=== PATIENT | male | born 1960 | race Two or more races ===

== ENCOUNTER 2017-06-13 23:19 | Inpatient (IN) | payer MEDICAID ==
[~2017-06-13] VITALS: Ht 185.4 cm; Wt 68.2 kg
[~2017-06-13 23:19] MED LIST: ALBU18HF2 INH; AMLO10TA4 PO; ASPI-1265 PO; HYDR-565 PO; LORA-269 PO; LOSA50TA37 PO; OMEP20CA10 PO
[2017-06-14] MEDS ORDERED: piperacillin/tazo 3.375gm/50ml 50 ML IV ONE (01:40)
[2017-06-14] MEDS ORDERED: vancomycin/NS 1 GM ADD-VANTAGE 250 ML IV ONE (01:40)
[2017-06-14] MEDS ORDERED: morphine 4 MG/ML inj SYRINge IV ONE (01:50)
[2017-06-14] MEDS ORDERED: ondansetron/PF 4mg/2ml inj IV ONE (01:50)
[2017-06-14 02:19] LABS: BASOPHILS # (AUTO) 0.1 X10'3 (0-0.2); BASOPHILS % (AUTO) 0.3 % (0-1); EOSINOPHILS # (AUTO) 0.1 X10'3 (0-0.9); EOSINOPHILS % (AUTO) 0.3 % (0-6); HEMATOCRIT 29.6 % (42.0-52.0); HEMOGLOBIN 10.1 g/dl (14.0-17.9); LYMPHOCYTES # (AUTO) 0.9 X10'3 (1.1-4.8); LYMPHOCYTES % (AUTO) 4.6 % (21-51); MEAN CORPUSCULAR HEMOGLOBIN 31.4 PG (27.0-31.0); MEAN CORPUSCULAR HGB CONC 33.9 % (33.0-36.5); MEAN CORPUSCULAR VOLUME 92.5 FL (78-98); MEAN PLATELET VOLUME 7.6 FL (7.4-10.4); MONOCYTES # (AUTO) 0.5 X10'3 (0-0.9); MONOCYTES % (AUTO) 2.6 % (2-12); NEUTROPHILS # (AUTO) 18.8 X10'3 (1.8-7.7); NEUTROPHILS % (AUTO) 92.2 % (42-75); PLATELET COUNT 194 X10'3 (140-440); RED CELL DISTRIBUTION WIDTH 14.7 % (11.5-14.5); WHITE BLOOD COUNT 20.4 X10'3 (4.5-11.0)
[2017-06-14 02:32] LABS: ALANINE AMINOTRANSFERASE 19 U/L (12-78); ALBUMIN 2.9 G/DL (3.4-5.0); ALBUMIN/GLOBULIN RATIO 0.6 (1.1-1.5); ALKALINE PHOSPHATASE 103 IU/L (46-116); ANION GAP 14 (8-16); ASPARTATE AMINO TRANSFERASE 36 U/L (10-37); BILIRUBIN,TOTAL 0.6 MG/DL (0.1-1.0); BLOOD UREA NITROGEN 22 MG/DL (7-18); BUN/CREATININE RATIO 17.3 (5.4-32.0); CALCIUM 8.4 MG/DL (8.5-10.1); CHLORIDE 89 MMOL/L (99-107); CREATININE 1.27 MG/DL (0.60-1.10); GLUCOSE 106 MG/DL (70-104); SODIUM 123 MMOL/L (135-145); TOTAL PROTEIN 7.5 G/DL (6.4-8.2); eGFR 58 ML/MIN
[2017-06-14] MEDS ORDERED: potassium Cl 20 mEq/100mL bag IV ONE (02:50)
[2017-06-14] MEDS ORDERED: normal saline 1000ML IV soln IV ONE (02:50)
[2017-06-14 03:02] LABS: CLARITY,URINE Clear (Clear); COLOR,URINE Yellow (Yellow); GLUCOSE, URINE Negative (Neg); KETONES,URINE Trace mg/dl (Neg); LEUKOCYTE ESTERASE ,URINE Trace (Neg); NITRITES, URINE Negative (Neg); OCCULT BLOOD,URINE Negative (Neg); PROTEIN,URINE Trace mg/dl (Neg)
[2017-06-14 03:15] LABS: UA COLLECTION TYPE CLN CATCH MIDSTREAM
[2017-06-14 03:23] LABS: TOTAL CELLS COUNTED 100
[2017-06-14 03:24] LABS: PLATELET ESTIMATE NORMAL; TOXIC GRANULATION 2+
[2017-06-14 03:25] LABS: TOXIC VACUOLATION FEW
[2017-06-14] MEDS ORDERED: potassium Cl 20mEq/100mL bag 100 ML IV ONE (03:30)
[2017-06-14 03:31] LABS: BACTERIA,URINE FEW /HPF (Neg); HYALINE CASTS 0-3 /LPF (NEGATIVE); RBC,URINE NONE SEEN /HPF (0-2); RENAL CELLS, URINE FEW /HPF; SQUAMOUS EPITHELIAL CELL,UR FEW /LPF (FEW); TRANSITIONAL EPI CELLS,URINE FEW /HPF; WBC,URINE 0-4 /HPF (0-4)
[2017-06-14 03:32] LABS: MUCUS STRANDS FEW /LPF (Neg)
[2017-06-14] MEDS ORDERED: dextrose 50%-water 50ml dispensing syringe IV PRN (03:55)
[2017-06-14] MEDS ORDERED: potassium Cl 40MEQ/NS 500ml 500 ML IV PRN ×2 (03:55)
[2017-06-14] MEDS ORDERED: potassium Cl 20 mEq SR tablet PO PRN ×2 (03:55)
[2017-06-14] MEDS ORDERED: LORazepam 2 mg/ml vial IV PRN ×2 (03:55)
[2017-06-14] MEDS: normal saline 1000ml 1,000 ML IV SCH ×2 (03:55→13:55)
[2017-06-14] MEDS ORDERED: ondansetron/PF 4mg/2ml inj IV PRN (03:55)
[2017-06-14] MEDS ORDERED: acetaminophen 325mg tablet PO PRN (03:55)
[2017-06-14] MEDS: LORazepam 1 MG tablet PO PRN ×2 (05:20→20:34)
[2017-06-14] MEDS: HYDROcodone/acetaminophen 5mg/325mg tablet PO PRN (05:33)
[2017-06-14] MEDS: K and/or MAG REPLACEMENT MC SCH (08:00)
[2017-06-14] MEDS ORDERED: potassium chloride 10mEq CAPSULE.SA PO SCH (08:00)
[2017-06-14] MEDS: potassium Cl 20 mEq SR tablet PO SCH (09:23)
[2017-06-14] MEDS: pantoprazole 40mg Tablet.DR PO SCH (09:23)
[2017-06-14] MEDS: thiamine 100mg tablet PO SCH (09:23)
[2017-06-14] MEDS: folic acid 1mg tablet PO SCH (09:23)
[2017-06-14] MEDS: lactobacillus rhamnosus 10,000 MMU CELLS/CAPSULE PO SCH ×2 (09:24→19:35)
[2017-06-14] MEDS: piperacillin/tazo 3.375gm/50ml 50 ML IV SCH ×2 (09:24→14:00)
[2017-06-14] MEDS ORDERED: LISI2.5T2 PO (11:43)
[2017-06-14] MEDS ORDERED: cefepime 2g/NS 100ml ADVANTAGE 100 ML IV SCH (16:00)
[2017-06-14 16:11] LABS: ALBUMIN 2.6 G/DL (3.4-5.0); ANION GAP 13 (8-16); BLOOD UREA NITROGEN 19 MG/DL (7-18); BUN/CREATININE RATIO 15.2 (5.4-32.0); CALCIUM 8.4 MG/DL (8.5-10.1); CHLORIDE 97 MMOL/L (99-107); CREATININE 1.25 MG/DL (0.60-1.10); GLUCOSE 108 MG/DL (70-104); POTASSIUM 4.1 MMOL/L (3.5-5.1); SODIUM 130 MMOL/L (135-145); eGFR 59 ML/MIN
[2017-06-14 16:13] LABS: ALBUMIN 2.6 G/DL (3.4-5.0); ANION GAP 13 (8-16); BLOOD UREA NITROGEN 19 MG/DL (7-18); BUN/CREATININE RATIO 15.4 (5.4-32.0); CALCIUM 8.4 MG/DL (8.5-10.1); CHLORIDE 97 MMOL/L (99-107); CREATININE 1.23 MG/DL (0.60-1.10); GLUCOSE 108 MG/DL (70-104); POTASSIUM 4.1 MMOL/L (3.5-5.1); SODIUM 129 MMOL/L (135-145); TOTAL CARBON DIOXIDE 19.1 MMOL/L (24-32); eGFR 60 ML/MIN
[2017-06-14] MEDS ORDERED: iohexol 300mg/ml 100ml inj. ONE (16:24)
[2017-06-14 16:38] LABS: HIV ANTIBODY 1&2 RAPID NON-REACTIVE (Neg)
[2017-06-14] MEDS: clindamycin-Cleocin 900mg/D5W 50 ML IV SCH ×2 (17:42→23:30)
[2017-06-14] MEDS: cefepime inj 2 GM in dextrose 5%-water 100 ML IV SCH (17:58)
[2017-06-14] MEDS: vancomycin/NS 1 GM ADD-VANTAGE 250 ML IV SCH (19:38)
[2017-06-14 20:00] VITALS: BP 125/83
[2017-06-15] VITALS: BP 107/58
[2017-06-15] MEDS: cefepime inj 2 GM in dextrose 5%-water 100 ML IV SCH ×2 (00:01→09:45)
[2017-06-15] MEDS ORDERED: Potassium Cl inj 20 MEQ in normal saline 1000ml 1,000 ML IV SCH (03:55)
[2017-06-15] MEDS: vancomycin/NS 1 GM ADD-VANTAGE 250 ML IV SCH ×2 (04:55→17:52)
[2017-06-15] MEDS: potassium Cl 20mEq in NS 1,000 ML IV SCH ×2 (04:55→14:05)
[2017-06-15 06:13] LABS: BASOPHILS # (AUTO) 0.1 X10'3 (0-0.2); BASOPHILS % (AUTO) 0.8 % (0-1); EOSINOPHILS % (AUTO) 0 % (0-6); HEMATOCRIT 26.2 % (42.0-52.0); HEMOGLOBIN 8.8 g/dl (14.0-17.9); LYMPHOCYTES # (AUTO) 0.4 X10'3 (1.1-4.8); LYMPHOCYTES % (AUTO) 2.8 % (21-51); MEAN CORPUSCULAR HGB CONC 33.6 % (33.0-36.5); MEAN CORPUSCULAR VOLUME 92.4 FL (78-98); MONOCYTES # (AUTO) 0.5 X10'3 (0-0.9); MONOCYTES % (AUTO) 3.1 % (2-12); NEUTROPHILS # (AUTO) 14.4 X10'3 (1.8-7.7); NEUTROPHILS % (AUTO) 93.3 % (42-75); PLATELET COUNT 163 X10'3 (140-440); RED BLOOD COUNT 2.83 X10'6 (4.70-6.10); RED CELL DISTRIBUTION WIDTH 15.1 % (11.5-14.5); WHITE BLOOD COUNT 15.4 X10'3 (4.5-11.0)
[2017-06-15 06:27] LABS: ANION GAP 13 (8-16); BLOOD UREA NITROGEN 21 MG/DL (7-18); BUN/CREATININE RATIO 14.6 (5.4-32.0); CHLORIDE 101 MMOL/L (99-107); CREATININE 1.44 MG/DL (0.60-1.10); GLUCOSE 124 MG/DL (70-104); POTASSIUM 3.5 MMOL/L (3.5-5.1); SODIUM 132 MMOL/L (135-145); TOTAL CARBON DIOXIDE 17.7 MMOL/L (24-32); eGFR 50 ML/MIN
[2017-06-15 07:11] LABS: ANISOCYTOSIS 1+; PLATELET ESTIMATE NORMAL; TOTAL CELLS COUNTED 100
[2017-06-15 07:12] LABS: POLYCHROMASIA FEW
[2017-06-15 08:00] VITALS: BP 97/50
[2017-06-15] MEDS: K and/or MAG REPLACEMENT MC SCH (08:00)
[2017-06-15 09:23] LABS: ALBUMIN 2.1 G/DL (3.4-5.0); ANION GAP 14 (8-16); BLOOD UREA NITROGEN 20 MG/DL (7-18); BUN/CREATININE RATIO 13.9 (5.4-32.0); CHLORIDE 102 MMOL/L (99-107); CREATININE 1.44 MG/DL (0.60-1.10); GLUCOSE 121 MG/DL (70-104); POTASSIUM 3.6 MMOL/L (3.5-5.1); SODIUM 134 MMOL/L (135-145); TOTAL CARBON DIOXIDE 18.4 MMOL/L (24-32); eGFR 50 ML/MIN
[2017-06-15] MEDS: pantoprazole 40mg Tablet.DR PO SCH (09:45)
[2017-06-15] MEDS: clindamycin-Cleocin 900mg/D5W 50 ML IV SCH ×3 (09:45→23:22)
[2017-06-15] MEDS: thiamine 100mg tablet PO SCH (09:46)
[2017-06-15] MEDS: lactobacillus rhamnosus 10,000 MMU CELLS/CAPSULE PO SCH ×2 (09:46→20:08)
[2017-06-15] MEDS: folic acid 1mg tablet PO SCH (09:46)
[2017-06-15] MEDS: potassium Cl 20 mEq SR tablet PO SCH (09:46)
[2017-06-15] MEDS: enoxaparin 40mg/0.4ml syringe SUBCUT SCH (09:47)
[2017-06-15] MEDS: HYDROcodone/acetaminophen 5mg/325mg tablet PO PRN ×2 (09:56→17:07)
[2017-06-15 11:00] VITALS: BP 91/52
[2017-06-15] MEDS ORDERED: VANCOMYCIN LEVEL IV ONE (16:30)
[2017-06-15] MEDS: LORazepam 1 MG tablet PO PRN ×3 (17:06→23:44)
[2017-06-15] MEDS: cefepime inj 2 GM in dextrose 5%-water 50ml 50 ML IV SCH (17:07)
[2017-06-15 20:00] VITALS: BP 114/51
[2017-06-16] VITALS: BP 109/62
[2017-06-16] MEDS: cefepime inj 2 GM in dextrose 5%-water 50ml 50 ML IV SCH ×3 (00:26→16:44)
[2017-06-16] MEDS: potassium Cl 20mEq in NS 1,000 ML IV SCH ×2 (00:30→13:47)
[2017-06-16] MEDS: LORazepam 1 MG tablet PO PRN ×2 (03:26→13:44)
[2017-06-16] MEDS ORDERED: LORazepam 2 mg/ml vial IV PRN (03:55)
[2017-06-16] MEDS: vancomycin/NS 1 GM ADD-VANTAGE 250 ML IV SCH ×2 (05:12→17:37)
[2017-06-16 07:00] VITALS: BP 139/74
[2017-06-16] MEDS: K and/or MAG REPLACEMENT MC SCH (08:00)
[2017-06-16] MEDS: lactobacillus rhamnosus 10,000 MMU CELLS/CAPSULE PO SCH ×2 (09:18→21:51)
[2017-06-16] MEDS: pantoprazole 40mg Tablet.DR PO SCH (09:18)
[2017-06-16] MEDS: thiamine 100mg tablet PO SCH (09:18)
[2017-06-16] MEDS: folic acid 1mg tablet PO SCH (09:18)
[2017-06-16] MEDS: enoxaparin 40mg/0.4ml syringe SUBCUT SCH (09:19)
[2017-06-16] MEDS: potassium Cl 20 mEq SR tablet PO SCH (09:19)
[2017-06-16 10:10] LABS: C DIFF ANTIGEN NEGATIVE (NEGATIVE); C DIFF SPECIMEN=DIARRHEA? ACCEPTABLE; C DIFFICILE TOXINS A&B NEGATIVE (Neg)
[2017-06-16] MEDS: clindamycin-Cleocin 900mg/D5W 50 ML IV SCH ×2 (11:15→15:49)
[2017-06-16 12:00] VITALS: BP 172/94
[2017-06-16 20:00] VITALS: BP 145/82
[2017-06-16 23:00] VITALS: BP 139/78
[2017-06-16] MEDS: HYDROcodone/acetaminophen 5mg/325mg tablet PO PRN (23:05)
[2017-06-17] MEDS: clindamycin-Cleocin 900mg/D5W 50 ML IV SCH ×3 (00:35→16:22)
[2017-06-17] MEDS: cefepime inj 2 GM in dextrose 5%-water 50ml 50 ML IV SCH ×2 (00:35→08:00)
[2017-06-17] MEDS: potassium Cl 20mEq in NS 1,000 ML IV SCH ×3 (01:41→16:05)
[2017-06-17] MEDS: vancomycin/NS 1 GM ADD-VANTAGE 250 ML IV SCH (04:49)
[2017-06-17 06:02] LABS: BASOPHILS % (AUTO) 0.4 % (0-1); EOSINOPHILS # (AUTO) 0.1 X10'3 (0-0.9); EOSINOPHILS % (AUTO) 1.1 % (0-6); HEMATOCRIT 28.3 % (42.0-52.0); HEMOGLOBIN 9.6 g/dl (14.0-17.9); LYMPHOCYTES # (AUTO) 0.6 X10'3 (1.1-4.8); LYMPHOCYTES % (AUTO) 7.2 % (21-51); MEAN CORPUSCULAR HEMOGLOBIN 30.9 PG (27.0-31.0); MEAN CORPUSCULAR HGB CONC 33.8 % (33.0-36.5); MEAN CORPUSCULAR VOLUME 91.4 FL (78-98); MEAN PLATELET VOLUME 7.6 FL (7.4-10.4); MONOCYTES # (AUTO) 0.5 X10'3 (0-0.9); NEUTROPHILS # (AUTO) 7.7 X10'3 (1.8-7.7); NEUTROPHILS % (AUTO) 85.3 % (42-75); PLATELET COUNT 191 X10'3 (140-440); RED CELL DISTRIBUTION WIDTH 15.3 % (11.5-14.5)
[2017-06-17 06:30] LABS: ALBUMIN 1.9 G/DL (3.4-5.0); ANION GAP 13 (8-16); BLOOD UREA NITROGEN 23 MG/DL (7-18); BUN/CREATININE RATIO 17.2 (5.4-32.0); CALCIUM 8.1 MG/DL (8.5-10.1); CHLORIDE 108 MMOL/L (99-107); CREATININE 1.34 MG/DL (0.60-1.10); GLUCOSE 120 MG/DL (70-104); POTASSIUM 3.6 MMOL/L (3.5-5.1); SODIUM 139 MMOL/L (135-145); TOTAL CARBON DIOXIDE 17.6 MMOL/L (24-32); eGFR 55 ML/MIN
[2017-06-17 07:00] VITALS: BP 128/60
[2017-06-17 07:20] VITALS: BP 128/60
[2017-06-17] MEDS: K and/or MAG REPLACEMENT MC SCH (08:00)
[2017-06-17] MEDS: folic acid 1mg tablet PO SCH (08:27)
[2017-06-17] MEDS: lactobacillus rhamnosus 10,000 MMU CELLS/CAPSULE PO SCH ×3 (08:27→21:11)
[2017-06-17] MEDS: thiamine 100mg tablet PO SCH (08:27)
[2017-06-17] MEDS: pantoprazole 40mg Tablet.DR PO SCH (08:27)
[2017-06-17] MEDS: enoxaparin 40mg/0.4ml syringe SUBCUT SCH (08:32)
[2017-06-17] MEDS: potassium Cl 20 mEq SR tablet PO SCH (09:12)
[2017-06-17] MEDS: LORazepam 1 MG tablet PO PRN ×4 (09:29→21:13)
[2017-06-17 11:43] VITALS: BP 117/17
[2017-06-17] MEDS: HYDROcodone/acetaminophen 5mg/325mg tablet PO PRN ×2 (12:06→18:44)
[2017-06-17] MEDS: silver sulfadiazine cream 400gm jar TP SCH (14:28)
[2017-06-17 18:00] VITALS: BP 148/74
[2017-06-17 23:30] VITALS: BP 164/86
[2017-06-18] MEDS: potassium Cl 20mEq in NS 1,000 ML IV SCH ×2 (01:14→13:40)
[2017-06-18] MEDS: clindamycin-Cleocin 900mg/D5W 50 ML IV SCH ×3 (01:14→16:27)
[2017-06-18] MEDS ORDERED: LORazepam 2 mg/ml vial IV PRN (03:55)
[2017-06-18 06:38] LABS: ALBUMIN 1.9 G/DL (3.4-5.0); ANION GAP 11 (8-16); BLOOD UREA NITROGEN 18 MG/DL (7-18); BUN/CREATININE RATIO 15.1 (5.4-32.0); CALCIUM 8.2 MG/DL (8.5-10.1); CHLORIDE 105 MMOL/L (99-107); CREATININE 1.19 MG/DL (0.60-1.10); GLUCOSE 100 MG/DL (70-104); POTASSIUM 3.6 MMOL/L (3.5-5.1); SODIUM 137 MMOL/L (135-145); TOTAL CARBON DIOXIDE 20.9 MMOL/L (24-32); eGFR 63 ML/MIN
[2017-06-18 07:00] VITALS: BP 147/76
[2017-06-18] MEDS: K and/or MAG REPLACEMENT MC SCH (07:28)
[2017-06-18] MEDS: thiamine 100mg tablet PO SCH (07:46)
[2017-06-18] MEDS: lactobacillus rhamnosus 10,000 MMU CELLS/CAPSULE PO SCH ×2 (07:47→19:39)
[2017-06-18] MEDS: pantoprazole 40mg Tablet.DR PO SCH (07:47)
[2017-06-18] MEDS: potassium Cl 20 mEq SR tablet PO SCH (07:48)
[2017-06-18] MEDS: folic acid 1mg tablet PO SCH (07:48)
[2017-06-18] MEDS: enoxaparin 40mg/0.4ml syringe SUBCUT SCH (07:49)
[2017-06-18] MEDS: silver sulfadiazine cream 400gm jar TP SCH (07:50)
[2017-06-18 08:14] VITALS: BP 147/76
[2017-06-18] MEDS: CefTRIAXone/D5W-Rocephin 1gm 50 ML IV SCH (08:52)
[2017-06-18] MEDS: LORazepam 1 MG tablet PO PRN ×3 (10:07→23:16)
[2017-06-18 10:46] VITALS: BP 147/80
[2017-06-18] MEDS: HYDROcodone/acetaminophen 5mg/325mg tablet PO PRN ×2 (13:37→19:37)
[2017-06-18 18:00] VITALS: BP 147/77
[2017-06-18] MEDS ORDERED: HYDROmorphone 2mg tablet PO ONE (22:20)
[2017-06-18 23:00] VITALS: BP 180/82
[2017-06-19] MEDS: potassium Cl 20mEq in NS 1,000 ML IV SCH ×3 (00:25→18:05)
[2017-06-19] MEDS: clindamycin-Cleocin 900mg/D5W 50 ML IV SCH ×3 (00:25→16:44)
[2017-06-19] MEDS: HYDROcodone/acetaminophen 5mg/325mg tablet PO PRN ×4 (00:25→21:49)
[2017-06-19 07:33] LABS: ALBUMIN 1.9 G/DL (3.4-5.0); ANION GAP 12 (8-16); BLOOD UREA NITROGEN 18 MG/DL (7-18); BUN/CREATININE RATIO 16.1 (5.4-32.0); CALCIUM 8.1 MG/DL (8.5-10.1); CHLORIDE 102 MMOL/L (99-107); CREATININE 1.12 MG/DL (0.60-1.10); GLUCOSE 101 MG/DL (70-104); POTASSIUM 3.5 MMOL/L (3.5-5.1); SODIUM 134 MMOL/L (135-145); eGFR 67 ML/MIN
[2017-06-19] MEDS: K and/or MAG REPLACEMENT MC SCH (08:00)
[2017-06-19] MEDS: silver sulfadiazine cream 400gm jar TP SCH (08:00)
[2017-06-19] MEDS: potassium Cl 20 mEq SR tablet PO SCH (09:18)
[2017-06-19] MEDS: LORazepam 1 MG tablet PO PRN ×2 (09:18→21:09)
[2017-06-19] MEDS: pantoprazole 40mg Tablet.DR PO SCH (09:19)
[2017-06-19] MEDS: thiamine 100mg tablet PO SCH (09:19)
[2017-06-19] MEDS: folic acid 1mg tablet PO SCH (09:19)
[2017-06-19] MEDS: lactobacillus rhamnosus 10,000 MMU CELLS/CAPSULE PO SCH ×2 (09:19→21:08)
[2017-06-19] MEDS: enoxaparin 40mg/0.4ml syringe SUBCUT SCH (09:20)
[2017-06-19] MEDS: CefTRIAXone/D5W-Rocephin 1gm 50 ML IV SCH (09:21)
[2017-06-19 10:53] VITALS: BP 144/72
[2017-06-19 11:00] VITALS: BP 140/75
[2017-06-19 19:30] VITALS: BP 142/80
[2017-06-20] VITALS: BP 160/75
[2017-06-20] MEDS: clindamycin-Cleocin 900mg/D5W 50 ML IV SCH ×2 (00:26→07:58)
[2017-06-20] MEDS: potassium Cl 20mEq in NS 1,000 ML IV SCH ×3 (02:22→23:51)
[2017-06-20 07:07] VITALS: BP 152/69
[2017-06-20] MEDS: folic acid 1mg tablet PO SCH (07:57)
[2017-06-20] MEDS: pantoprazole 40mg Tablet.DR PO SCH (07:57)
[2017-06-20] MEDS: potassium Cl 20 mEq SR tablet PO SCH (07:58)
[2017-06-20] MEDS: thiamine 100mg tablet PO SCH (07:58)
[2017-06-20] MEDS: CefTRIAXone/D5W-Rocephin 1gm 50 ML IV SCH (07:58)
[2017-06-20] MEDS: lactobacillus rhamnosus 10,000 MMU CELLS/CAPSULE PO SCH ×2 (07:58→19:13)
[2017-06-20] MEDS: enoxaparin 40mg/0.4ml syringe SUBCUT SCH (07:59)
[2017-06-20] MEDS: silver sulfadiazine cream 400gm jar TP SCH (08:05)
[2017-06-20 11:22] VITALS: BP 148/76
[2017-06-20] MEDS: LORazepam 1 MG tablet PO PRN (16:21)
[2017-06-20] MEDS: HYDROcodone/acetaminophen 5mg/325mg tablet PO PRN ×2 (16:23→23:54)
[2017-06-20 19:00] VITALS: BP 163/77
[2017-06-21] VITALS: BP 169/78
[2017-06-21 08:00] VITALS: BP 155/84
[2017-06-21] MEDS: K and/or MAG REPLACEMENT MC SCH (08:00)
[2017-06-21 09:50] LABS: BASOPHILS % (AUTO) 0.4 % (0-1); EOSINOPHILS # (AUTO) 0.1 X10'3 (0-0.9); EOSINOPHILS % (AUTO) 2.3 % (0-6); HEMATOCRIT 28.6 % (42.0-52.0); HEMOGLOBIN 9.5 g/dl (14.0-17.9); LYMPHOCYTES # (AUTO) 0.6 X10'3 (1.1-4.8); LYMPHOCYTES % (AUTO) 11.9 % (21-51); MEAN CORPUSCULAR HEMOGLOBIN 30.4 PG (27.0-31.0); MEAN CORPUSCULAR HGB CONC 33.1 % (33.0-36.5); MEAN CORPUSCULAR VOLUME 91.8 FL (78-98); MEAN PLATELET VOLUME 7.8 FL (7.4-10.4); MONOCYTES # (AUTO) 0.4 X10'3 (0-0.9); MONOCYTES % (AUTO) 7.3 % (2-12); NEUTROPHILS # (AUTO) 4.1 X10'3 (1.8-7.7); NEUTROPHILS % (AUTO) 78.1 % (42-75); PLATELET COUNT 222 X10'3 (140-440); RED BLOOD COUNT 3.11 X10'6 (4.70-6.10); RED CELL DISTRIBUTION WIDTH 15.1 % (11.5-14.5); WHITE BLOOD COUNT 5.3 X10'3 (4.5-11.0)
[2017-06-21 10:02] LABS: PROTHROMBIN TIME 10.1 SECONDS (9.0-12.0)
[2017-06-21 10:07] LABS: ALBUMIN 1.9 G/DL (3.4-5.0); ANION GAP 10 (8-16); BLOOD UREA NITROGEN 19 MG/DL (7-18); BUN/CREATININE RATIO 18.4 (5.4-32.0); CALCIUM 8.1 MG/DL (8.5-10.1); CHLORIDE 103 MMOL/L (99-107); CREATININE 1.03 MG/DL (0.60-1.10); GLUCOSE 131 MG/DL (70-104); MAGNESIUM 1.6 MG/DL (1.5-2.4); POTASSIUM 3.5 MMOL/L (3.5-5.1); SODIUM 134 MMOL/L (135-145); TOTAL CARBON DIOXIDE 20.6 MMOL/L (24-32); eGFR 74 ML/MIN
[2017-06-21] MEDS: pantoprazole 40mg Tablet.DR PO SCH (10:29)
[2017-06-21] MEDS: lactobacillus rhamnosus 10,000 MMU CELLS/CAPSULE PO SCH ×2 (10:30→19:44)
[2017-06-21] MEDS: folic acid 1mg tablet PO SCH (10:30)
[2017-06-21] MEDS: potassium Cl 20 mEq SR tablet PO SCH (10:30)
[2017-06-21] MEDS: thiamine 100mg tablet PO SCH (10:32)
[2017-06-21] MEDS: enoxaparin 40mg/0.4ml syringe SUBCUT SCH (10:35)
[2017-06-21] MEDS: CefTRIAXone/D5W-Rocephin 1gm 50 ML IV SCH (10:36)
[2017-06-21] MEDS: HYDROcodone/acetaminophen 5mg/325mg tablet PO PRN ×3 (10:36→20:54)
[2017-06-21] MEDS: silver sulfadiazine cream 400gm jar TP SCH (10:42)
[2017-06-21] MEDS: potassium Cl 20mEq in NS 1,000 ML IV SCH ×2 (10:43→20:05)
[2017-06-21 11:00] VITALS: BP 147/81
[2017-06-21] MEDS: LORazepam 1 MG tablet PO PRN (16:42)
[2017-06-21 19:00] VITALS: BP 162/74
[2017-06-22] VITALS: BP 114/76
[2017-06-22] MEDS: LORazepam 1 MG tablet PO PRN ×4 (00:59→22:35)
[2017-06-22] MEDS: potassium Cl 20mEq in NS 1,000 ML IV SCH ×2 (01:00→16:36)
[2017-06-22 07:00] VITALS: BP 167/72
[2017-06-22] MEDS: silver sulfadiazine cream 400gm jar TP SCH (08:00)
[2017-06-22] MEDS: K and/or MAG REPLACEMENT MC SCH (08:00)
[2017-06-22] MEDS: lactobacillus rhamnosus 10,000 MMU CELLS/CAPSULE PO SCH ×2 (09:21→19:38)
[2017-06-22] MEDS: potassium Cl 20 mEq SR tablet PO SCH (09:21)
[2017-06-22] MEDS: CefTRIAXone/D5W-Rocephin 1gm 50 ML IV SCH (09:21)
[2017-06-22] MEDS: pantoprazole 40mg Tablet.DR PO SCH (09:22)
[2017-06-22] MEDS: folic acid 1mg tablet PO SCH (09:22)
[2017-06-22] MEDS: HYDROcodone/acetaminophen 5mg/325mg tablet PO PRN ×3 (09:22→22:37)
[2017-06-22] MEDS: enoxaparin 40mg/0.4ml syringe SUBCUT SCH (09:23)
[2017-06-22] MEDS: thiamine 100mg tablet PO SCH (09:36)
[2017-06-22 11:00] VITALS: BP 158/72
[2017-06-22 20:00] VITALS: BP 134/88
[2017-06-23] VITALS: BP 164/82
[2017-06-23] MEDS: potassium Cl 20mEq in NS 1,000 ML IV SCH ×3 (02:27→23:36)
[2017-06-23 07:00] VITALS: BP 147/74
[2017-06-23] MEDS: K and/or MAG REPLACEMENT MC SCH (08:00)
[2017-06-23] MEDS: cloNIDine 0.1 mg tablet PO SCH ×3 (08:00→21:20)
[2017-06-23] MEDS: folic acid 1mg tablet PO SCH (08:07)
[2017-06-23] MEDS: potassium Cl 20 mEq SR tablet PO SCH (08:07)
[2017-06-23] MEDS: HYDROcodone/acetaminophen 5mg/325mg tablet PO PRN ×3 (08:07→19:53)
[2017-06-23] MEDS: thiamine 100mg tablet PO SCH (08:07)
[2017-06-23] MEDS: LORazepam 1 MG tablet PO PRN ×3 (08:07→21:20)
[2017-06-23] MEDS: pantoprazole 40mg Tablet.DR PO SCH (08:07)
[2017-06-23] MEDS: lactobacillus rhamnosus 10,000 MMU CELLS/CAPSULE PO SCH ×2 (08:08→19:54)
[2017-06-23] MEDS: CefTRIAXone/D5W-Rocephin 1gm 50 ML IV SCH (08:09)
[2017-06-23] MEDS: silver sulfadiazine cream 400gm jar TP SCH (08:09)
[2017-06-23] MEDS: enoxaparin 40mg/0.4ml syringe SUBCUT SCH (08:09)
[2017-06-23 11:00] VITALS: BP 137/84
[2017-06-23 19:00] VITALS: BP 157/80
[2017-06-23 23:30] VITALS: BP 168/74
[2017-06-24 07:30] VITALS: BP 153/51
[2017-06-24] MEDS: K and/or MAG REPLACEMENT MC SCH (08:00)
[2017-06-24] MEDS: potassium Cl 20mEq in NS 1,000 ML IV SCH ×3 (08:05→19:48)
[2017-06-24] MEDS: CefTRIAXone/D5W-Rocephin 1gm 50 ML IV SCH (08:11)
[2017-06-24] MEDS: LORazepam 1 MG tablet PO PRN ×3 (08:12→22:48)
[2017-06-24] MEDS: thiamine 100mg tablet PO SCH (08:12)
[2017-06-24] MEDS: folic acid 1mg tablet PO SCH (08:12)
[2017-06-24] MEDS: HYDROcodone/acetaminophen 5mg/325mg tablet PO PRN ×4 (08:12→21:26)
[2017-06-24] MEDS: cloNIDine 0.1 mg tablet PO SCH ×3 (08:12→19:46)
[2017-06-24] MEDS: lactobacillus rhamnosus 10,000 MMU CELLS/CAPSULE PO SCH ×2 (08:12→19:48)
[2017-06-24] MEDS: pantoprazole 40mg Tablet.DR PO SCH (08:12)
[2017-06-24] MEDS: potassium Cl 20 mEq SR tablet PO SCH (08:12)
[2017-06-24] MEDS: enoxaparin 40mg/0.4ml syringe SUBCUT SCH (08:13)
[2017-06-24] MEDS: silver sulfadiazine cream 400gm jar TP SCH (08:13)
[2017-06-24 11:00] VITALS: BP 162/75
[2017-06-24 12:47] VITALS: BP 129/81
[2017-06-24 20:00] VITALS: BP 106/76
[2017-06-25] VITALS: BP 186/69
[2017-06-25] MEDS: cloNIDine 0.1 mg tablet PO SCH ×2 (07:06→12:30)
[2017-06-25] MEDS: potassium Cl 20 mEq SR tablet PO SCH (07:11)
[2017-06-25] MEDS: LORazepam 1 MG tablet PO PRN ×2 (07:11→15:11)
[2017-06-25] MEDS: pantoprazole 40mg Tablet.DR PO SCH (07:11)
[2017-06-25] MEDS: lactobacillus rhamnosus 10,000 MMU CELLS/CAPSULE PO SCH (07:11)
[2017-06-25] MEDS: HYDROcodone/acetaminophen 5mg/325mg tablet PO PRN ×3 (07:11→15:12)
[2017-06-25] MEDS: folic acid 1mg tablet PO SCH (07:11)
[2017-06-25] MEDS: thiamine 100mg tablet PO SCH (07:12)
[2017-06-25] MEDS: enoxaparin 40mg/0.4ml syringe SUBCUT SCH (07:12)
[2017-06-25] MEDS: silver sulfadiazine cream 400gm jar TP SCH (07:13)
[2017-06-25] MEDS: K and/or MAG REPLACEMENT MC SCH (07:16)
[2017-06-25 07:30] VITALS: BP 158/72
[2017-06-25 11:30] VITALS: BP 165/78
[2017-06-25] MEDS: potassium Cl 20mEq in NS 1,000 ML IV SCH (14:05)
== END 2017-06-25 18:55 | disposition home health service (06) | DRG 720 ==
LOC: ER 23:20 → ED HOLD 06-14 03:55 → MED 3N 06-14 15:11
PROVIDERS: ADMIT Family Medicine; ATTEND Internal Medicine
PROC: BP2U1ZZ Computerized Tomography (CT Scan) of Left Upper Extremity using Low Osmolar Contrast (ICD-10-PCS; principal; 2017-06-14)
DX: A41.9 Sepsis, unspecified organism (principal); N17.9 Acute kidney failure, unspecified; K70.30 Alcoholic cirrhosis of liver without ascites; N13.30 Unspecified hydronephrosis; E87.1 Hypo-osmolality and hyponatremia; R65.20 Severe sepsis without septic shock; E87.5 Hyperkalemia; F10.20 Alcohol dependence, uncomplicated; L03.114 Cellulitis of left upper limb; F17.210 Nicotine dependence, cigarettes, uncomplicated; I10 Essential (primary) hypertension; J44.9 Chronic obstructive pulmonary disease, unspecified; K21.9 Gastro-esophageal reflux disease without esophagitis; E86.0 Dehydration; F41.9 Anxiety disorder, unspecified; D64.9 Anemia, unspecified; E87.6 Hypokalemia; G89.29 Other chronic pain; M19.90 Unspecified osteoarthritis, unspecified site; Z79.899 Other long term (current) drug therapy; Z59.0 Homelessness
CPT/HCPCS: 36415; 73090; 73201; 74176; 76775; 80048; 80053; 80202; 81001; 82948; 83605; 83735; 84145; 85025; 85610; 86703; 87040; 87070; 87088; 87324; 87449; 96365; 96375; 97110; 97162; 97530; 99285; A6212; A6213; A6223; A6253; A6258; A6446; A6449; J0692; J0696; J1650; J2060; J2270; J2405; J2543; J3370; J3480; J3490; J7030; J7060; Q9967

== ENCOUNTER 2017-07-29 16:26 | Emergency (ER) | payer MEDICAID ==
[~2017-07-29] VITALS: Ht 175.3 cm; Wt 68.0 kg
[~2017-07-29 16:26] MED LIST changes: -HYDR-565 PO; +LISI2.5T2 PO; -LORA-269 PO
[2017-07-29 16:33] VITALS: BP 108/66
== END 2017-07-29 19:02 | disposition left against medical advice (07) ==
LOC: ER 16:26
DX: R53.1 Weakness (principal); Z53.21 Procedure and treatment not carried out due to patient leaving prior to being seen by health care provider

== ENCOUNTER 2017-07-29 20:53 | Inpatient (IN) | payer MEDICAID ==
[~2017-07-29] VITALS: Ht 185.4 cm; Wt 72.7 kg
[2017-07-29] MEDS ORDERED: normal saline 1000ML IV soln IV ONE (22:45)
[2017-07-29 22:59] LABS: CLARITY,URINE CLEAR (Clear); COLOR,URINE YELLOW (Yellow); GLUCOSE, URINE NEGATIVE (Neg); KETONES,URINE NEGATIVE (Neg); LEUKOCYTE ESTERASE ,URINE NEGATIVE (Neg); NITRITES, URINE NEGATIVE (Neg); OCCULT BLOOD,URINE NEGATIVE (Neg); PROTEIN,URINE NEGATIVE (Neg); UROBILINOGEN,URINE 0.2 E.U/dL (0.2-1.0)
[2017-07-29 23:16] LABS: UA COLLECTION TYPE CLN CATCH MIDSTREAM
[2017-07-29 23:56] LABS: BASOPHILS % (AUTO) 1.1 % (0-1); EOSINOPHILS # (AUTO) 0.2 X10'3 (0-0.9); EOSINOPHILS % (AUTO) 4.6 % (0-6); HEMATOCRIT 33.6 % (42.0-52.0); HEMOGLOBIN 11.7 g/dl (14.0-17.9); LYMPHOCYTES # (AUTO) 1.4 X10'3 (1.1-4.8); LYMPHOCYTES % (AUTO) 38.1 % (21-51); MEAN CORPUSCULAR HGB CONC 34.7 % (33.0-36.5); MEAN CORPUSCULAR VOLUME 89.4 FL (78-98); MEAN PLATELET VOLUME 7.2 FL (7.4-10.4); MONOCYTES # (AUTO) 0.2 X10'3 (0-0.9); MONOCYTES % (AUTO) 4.7 % (2-12); NEUTROPHILS # (AUTO) 1.9 X10'3 (1.8-7.7); NEUTROPHILS % (AUTO) 51.5 % (42-75); PLATELET COUNT 205 X10'3 (140-440); RED BLOOD COUNT 3.76 X10'6 (4.70-6.10); RED CELL DISTRIBUTION WIDTH 14.9 % (11.5-14.5); WHITE BLOOD COUNT 3.6 X10'3 (4.5-11.0)
[2017-07-30 00:04] LABS: PARTIAL THROMBOPLASTIN TIME 31 SECONDS (22-32)
[2017-07-30 00:10] LABS: ALANINE AMINOTRANSFERASE 18 U/L (12-78); ALBUMIN 3.6 G/DL (3.4-5.0); ALBUMIN/GLOBULIN RATIO 0.8 (1.1-1.5); ALKALINE PHOSPHATASE 122 IU/L (46-116); ANION GAP 12 (8-16); ASPARTATE AMINO TRANSFERASE 39 U/L (10-37); BILIRUBIN,TOTAL 0.4 MG/DL (0.1-1.0); BLOOD UREA NITROGEN 14 MG/DL (7-18); BUN/CREATININE RATIO 16.9 (5.4-32.0); CHLORIDE 82 MMOL/L (99-107); CREATININE 0.83 MG/DL (0.60-1.10); GLUCOSE 84 MG/DL (70-104); MAGNESIUM 1.8 MG/DL (1.5-2.4); POTASSIUM 3.3 MMOL/L (3.5-5.1); TOTAL CARBON DIOXIDE 24.2 MMOL/L (24-32); TOTAL PROTEIN 8.2 G/DL (6.4-8.2); eGFR > 90 ML/MIN
[2017-07-30 00:20] LABS: SODIUM 118 MMOL/L (135-145)
[2017-07-30] MEDS ORDERED: normal saline 1000ml 1,000 ML IV SCH (01:57)
[2017-07-30] MEDS ORDERED: ondansetron/PF 4mg/2ml inj IV PRN (02:00)
[2017-07-30] MEDS ORDERED: acetaminophen 325mg tablet PO PRN (02:00)
[2017-07-30 03:10] VITALS: BP 133/89
[2017-07-30] MEDS ORDERED: potassium Cl 40MEQ/NS 500ml 500 ML IV PRN ×2 (03:45)
[2017-07-30] MEDS ORDERED: magnesium 4gm in 100ml NS 100 ML IV PRN (03:45)
[2017-07-30] MEDS ORDERED: magnesium 2GM in 50ml NS 50 ML IV PRN (03:45)
[2017-07-30] MEDS ORDERED: potassium Cl 20 mEq SR tablet PO PRN (03:45)
[2017-07-30] MEDS ORDERED: magnesium Cl slow-release 64mg tablet PO PRN (03:45)
[2017-07-30] MEDS: potassium Cl 20 mEq SR tablet PO PRN ×3 (04:10→14:19)
[2017-07-30] MEDS: HYDROcodone/acetaminophen 10/325mg tab PO PRN ×5 (04:11→23:47)
[2017-07-30 07:14] VITALS: BP 119/63
[2017-07-30] MEDS ORDERED: albuterol 2.5 MG/3 ML nebule NEB PRN (08:15)
[2017-07-30] MEDS: normal saline 1000ml 1,000 ML IV SCH ×3 (08:18→23:50)
[2017-07-30] MEDS ORDERED: dicyclomine 10 MG capsule PO PRN (08:25)
[2017-07-30] MEDS ORDERED: cyclobenzaprine 10mg tablet PO PRN (08:25)
[2017-07-30] MEDS ORDERED: thiamine 100mg/ml 2ml inj. IV ONE (08:25)
[2017-07-30] MEDS ORDERED: loperamide 2mg capsule PO PRN (08:25)
[2017-07-30] MEDS ORDERED: dextrose 50%-water 50ml dispensing syringe IV PRN (08:25)
[2017-07-30] MEDS ORDERED: thiamine inj. 100 MG in normal saline 100ml IV soln 99 ML IV ONE (08:30)
[2017-07-30 08:43] LABS: ALANINE AMINOTRANSFERASE 21 U/L (12-78); ALBUMIN 3.1 G/DL (3.4-5.0); ALBUMIN/GLOBULIN RATIO 0.7 (1.1-1.5); ALKALINE PHOSPHATASE 120 IU/L (46-116); ANION GAP 11 (8-16); ASPARTATE AMINO TRANSFERASE 51 U/L (10-37); BILIRUBIN,TOTAL 0.5 MG/DL (0.1-1.0); BLOOD UREA NITROGEN 15 MG/DL (7-18); BUN/CREATININE RATIO 19.2 (5.4-32.0); CALCIUM 8.4 MG/DL (8.5-10.1); CHLORIDE 90 MMOL/L (99-107); CREATININE 0.78 MG/DL (0.60-1.10); GLUCOSE 75 MG/DL (70-104); SODIUM 124 MMOL/L (135-145); TOTAL CARBON DIOXIDE 23.2 MMOL/L (24-32); TOTAL PROTEIN 7.4 G/DL (6.4-8.2); eGFR > 90 ML/MIN
[2017-07-30 08:46] LABS: POTASSIUM 3.5 MMOL/L (3.5-5.1)
[2017-07-30 09:35] LABS: CREATINE KINASE 334 U/L (39-308); LIPASE 84 U/L (73-393); PHOSPHORUS 3.8 MG/DL (2.3-4.5); TROPONIN I < 0.04 NG/ML (0.0-0.05)
[2017-07-30] MEDS: heparin, porcine 5000 units/ml vial SQ SCH ×2 (10:04→19:40)
[2017-07-30 12:00] VITALS: BP 116/65
[2017-07-30] MEDS: ferrous sulfate ER tablet 140 MG TABLET.ER PO SCH (19:39)
[2017-07-30 20:00] VITALS: BP 127/74
[2017-07-31] VITALS: BP 110/65
[2017-07-31] MEDS: HYDROcodone/acetaminophen 10/325mg tab PO PRN (05:04)
[2017-07-31 05:31] LABS: BASOPHILS % (AUTO) 0.7 % (0-1); EOSINOPHILS # (AUTO) 0.1 X10'3 (0-0.9); HEMATOCRIT 28.9 % (42.0-52.0); HEMOGLOBIN 9.9 g/dl (14.0-17.9); LYMPHOCYTES # (AUTO) 1.2 X10'3 (1.1-4.8); LYMPHOCYTES % (AUTO) 27.5 % (21-51); MEAN CORPUSCULAR HGB CONC 34.1 % (33.0-36.5); MEAN CORPUSCULAR VOLUME 90.7 FL (78-98); MEAN PLATELET VOLUME 8.1 FL (7.4-10.4); MONOCYTES # (AUTO) 0.4 X10'3 (0-0.9); MONOCYTES % (AUTO) 8.7 % (2-12); NEUTROPHILS # (AUTO) 2.5 X10'3 (1.8-7.7); NEUTROPHILS % (AUTO) 60.1 % (42-75); PLATELET COUNT 175 X10'3 (140-440); RED BLOOD COUNT 3.19 X10'6 (4.70-6.10); RED CELL DISTRIBUTION WIDTH 14.8 % (11.5-14.5); WHITE BLOOD COUNT 4.2 X10'3 (4.5-11.0)
[2017-07-31 05:56] LABS: ALANINE AMINOTRANSFERASE 14 U/L (12-78); ALBUMIN 2.7 G/DL (3.4-5.0); ALBUMIN/GLOBULIN RATIO 0.7 (1.1-1.5); ALKALINE PHOSPHATASE 123 IU/L (46-116); ANION GAP 10 (8-16); ASPARTATE AMINO TRANSFERASE 26 U/L (10-37); BILIRUBIN,TOTAL 0.2 MG/DL (0.1-1.0); BLOOD UREA NITROGEN 17 MG/DL (7-18); BUN/CREATININE RATIO 16.3 (5.4-32.0); CALCIUM 8.4 MG/DL (8.5-10.1); CHLORIDE 101 MMOL/L (99-107); CREATININE 1.04 MG/DL (0.60-1.10); GLUCOSE 95 MG/DL (70-104); MAGNESIUM 1.8 MG/DL (1.5-2.4); POTASSIUM 3.6 MMOL/L (3.5-5.1); SODIUM 134 MMOL/L (135-145); TOTAL CARBON DIOXIDE 23.3 MMOL/L (24-32); TOTAL PROTEIN 6.6 G/DL (6.4-8.2); eGFR 73 ML/MIN
[2017-07-31 06:55] VITALS: BP 112/61
[2017-07-31] MEDS ORDERED: pantoprazole 40mg Tablet.DR PO SCH (07:30)
[2017-07-31] MEDS: ferrous sulfate ER tablet 140 MG TABLET.ER PO SCH (07:37)
[2017-07-31] MEDS: normal saline 1000ml 1,000 ML IV SCH (07:37)
[2017-07-31] MEDS: heparin, porcine 5000 units/ml vial SQ SCH (07:44)
[2017-07-31] MEDS ORDERED: aspirin 81mg tab.chew PO SCH (08:00)
[2017-07-31] MEDS ORDERED: folic acid inj. 2 MG, thiamine inj. 100 MG, MVI, adult No.4 with vit. K 10 ML in dextro... IV SCH ×4 (08:00)
[2017-07-31] MEDS ORDERED: losartan 50mg tablet PO SCH (08:00)
[2017-07-31] MEDS ORDERED: multivitamins, therapeutics tablet PO SCH (08:00)
[2017-07-31 10:49] VITALS: BP 120/60
[2017-08-01] MEDS ORDERED: LORazepam 2 mg/ml vial IV PRN (08:25)
[2017-08-01] MEDS ORDERED: LORazepam 1 MG tablet PO PRN (08:25)
[2017-08-03] MEDS ORDERED: LORazepam 2 mg/ml vial IV PRN (08:25)
[2017-08-03] MEDS ORDERED: LORazepam 1 MG tablet PO PRN (08:25)
== END 2017-07-31 16:35 | disposition home or self-care (01) | DRG 422 ==
LOC: ER 20:55 → ED HOLD 07-30 01:57 → EDBEDREQ 07-30 02:50 → SUR 3N 07-30 03:00
PROVIDERS: ADMIT Internal Medicine; ATTEND Family Medicine
DX: E87.1 Hypo-osmolality and hyponatremia (principal); E86.0 Dehydration; I10 Essential (primary) hypertension; J44.9 Chronic obstructive pulmonary disease, unspecified; K21.9 Gastro-esophageal reflux disease without esophagitis; G89.29 Other chronic pain; M19.90 Unspecified osteoarthritis, unspecified site; N28.82 Megaloureter; Z56.0 Unemployment, unspecified; Z79.899 Other long term (current) drug therapy
CPT/HCPCS: 36415; 71045; 80053; 81003; 82550; 83605; 83690; 83735; 83880; 84100; 84145; 84484; 85025; 85610; 85730; 87040; 87070; 94640; 94760; 96360; 99285; J1644; J3411; J3490; J7030; J7060

== ENCOUNTER 2018-03-02 16:07 | Inpatient (IN) | payer MEDICAID | END 2018-04-07 14:45 | disposition E | LOC: PCU 3S 03-04 09:48 → ICU 2S 03-06 01:15 → ER 16:07 → PCU 3S 03-04 13:30 → ED HOLD 20:02 → SUR 3N 23:05 ==